=== PATIENT | male | born 1965 | race Caucasian/White ===

== ENCOUNTER → 2021-03-27 | Outpatient (CLI) | payer BC ==
[~2021-03-27] MED LIST: ATOR-2 PO; CELE100C PO; EMPA25TA PO; ISOS30TA8 PO; LAMO100T8 PO; MELO15TA24 PO; METF500T17 PO; METO25TA91 PO; OMEP40CA8 PO; SERT50TA28 PO
[2021-03-27 13:56] LABS: ALBUMIN 3.6 g/dL (3.4-5.0); ANION GAP 10 mmol/L (5-15); CALCIUM 9.3 mg/dL (8.5-10.1); CHLORIDE 106 mmol/L (98-107)
[2021-03-27 14:02] LABS: ALANINE AMINOTRANSFERASE 30 U/L (12-78); ALKALINE PHOSPHATASE 88 U/L (45-117); BILIRUBIN,TOTAL 0.5 mg/dL (0.2-1.0); CREATININE 0.69 mg/dL (0.7-1.3); TOTAL PROTEIN 7.2 g/dL (6.4-8.2)
[2021-03-27 14:06] LABS: BASOPHILS % (AUTO) 1 % (0-1); EOSINOPHILS % (AUTO) 3 % (1-7); LYMPHOCYTES % (AUTO) 32 % (22-44); MEAN CORPUSCULAR HEMOGLOBIN 28.3 pg (27.5-34.5); MEAN CORPUSCULAR HGB CONC 33.1 g/dL (33.2-36.2); MEAN PLATELET VOLUME 9.3 fL (7.4-10.4); MONOCYTES % (AUTO) 7 % (2-9); NEUTROPHILS % (AUTO) 57 % (42-75); PLATELET COUNT 204 x10^3/uL (130-400); RED BLOOD COUNT 4.94 x10^6/uL (4.38-5.82); RED CELL DISTRIBUTION WIDTH 13.8 % (9.4-14.8)
== END | disposition home or self-care (01) ==
LOC: STAR 12:35
PROVIDERS: ATTEND Orthopaedic Surgery
DX: Z01.818 Encounter for other preprocedural examination (principal); M16.11 Unilateral primary osteoarthritis, right hip
CPT/HCPCS: 36415; 80053; 85025; 87081; 87147; 93005

== ENCOUNTER 2021-04-01 05:42 | Observation (INO) | payer BC, OTHER ==
[~2021-04-01] VITALS: Ht 172.7 cm; Wt 110.9 kg
[2021-04-01] MEDS ORDERED: DEXAMETHASONE 4 MG/ML, 1ML IVPush ONE (06:00)
[2021-04-01] MEDS ORDERED: SODIUM CHLORIDE 0.9% 50 ML ONE (06:10)
[2021-04-01] MEDS ORDERED: TRANEXAMIC ACID 100 MG/ML, 10ML ONE (06:10)
[2021-04-01] MEDS ORDERED: EPINEPHRINE 1 MG/ML, 1ML ONE (06:10)
[2021-04-01] MEDS ORDERED: ROPIvacaine/PF 0.2%, 20 ML ONE (06:10)
[2021-04-01] MEDS ORDERED: KETOROLAC 60 MG/2 ML ONE (06:10)
[2021-04-01 06:29] VITALS: BP 134/85
[2021-04-01] MEDS ORDERED: CHLORHEXIDINE 15 ML UDC ONE (06:44)
[2021-04-01] MEDS ORDERED: POLYETHYLENE GLYCOL 17 GM PACKET PO PRN (07:00)
[2021-04-01] MEDS ORDERED: LACTATED RINGERS 1,000 ML IV SCH (07:00)
[2021-04-01] MEDS ORDERED: ALUMINUM/MAG/SIMETHICONE 30 ML UDC PO PRN (07:00)
[2021-04-01] MEDS ORDERED: PSYLLIUM PACKET PO PRN (07:00)
[2021-04-01] MEDS ORDERED: DIPHENHYDRAMINE 25 MG CAPSULE PO PRN (07:00)
[2021-04-01] MEDS ORDERED: ONDANSETRON 2MG/ML, 2ML IVPush PRN ×2 (07:00→07:30)
[2021-04-01] MEDS ORDERED: ACETAMINOPHEN 650 MG/20.3 ML UDC PO PRN (07:00)
[2021-04-01] MEDS ORDERED: TRANEXAMIC ACID 1,000 MG in SODIUM CHLORIDE 0.9% 100 ML IVPB ONE (07:00)
[2021-04-01] MEDS ORDERED: HYDROmorphone 1 MG/ML, 1ML INJ IVPush PRN (07:00)
[2021-04-01] MEDS ORDERED: DIPHENHYDRAMINE 50 MG/ML, 1ML IVPush PRN (07:00)
[2021-04-01] MEDS ORDERED: MAGNESIUM HYDROXIDE 8%, 30ML UDC PO PRN (07:00)
[2021-04-01] MEDS ORDERED: CHLORHEXIDINE 15 ML UDC PO ONE (07:00)
[2021-04-01] MEDS ORDERED: ONDANSETRON 4 MG TABLET PO PRN (07:00)
[2021-04-01] MEDS ORDERED: SENNA/DOCUSATE TABLET PO PRN (07:00)
[2021-04-01] MEDS ORDERED: KETOROLAC 30 MG/1 ML IV SCH (07:00)
[2021-04-01] MEDS ORDERED: FENTANYL PF 100 MCG/2ML ONE ×2 (07:04→10:19)
[2021-04-01] MEDS ORDERED: MIDAZOLAM 1 MG/ML, 2ML ONE (07:05)
[2021-04-01] MEDS ORDERED: OXYcodone 5 MG/5 ML ORAL.SOL UDC PO PRN (07:30)
[2021-04-01] MEDS ORDERED: FENTANYL PF 100 MCG/2ML IV PRN (07:30)
[2021-04-01] MEDS ORDERED: KETOROLAC 30 MG/1 ML IVPush PRN (07:30)
[2021-04-01] MEDS ORDERED: HYDROcodone/APAP 7.5-325MG/15ML UDC PO PRN (07:30)
[2021-04-01] MEDS ORDERED: MEPERIDINE/PF 25MG/0.5ML IVPush PRN (07:30)
[2021-04-01] MEDS ORDERED: PROMETHAZINE 25 MG/ML, 1ML IVPush PRN (07:30)
[2021-04-01] MEDS ORDERED: GLYCOPYRROLATE 0.2MG/1ML, 5ML ONE (07:32)
[2021-04-01] MEDS ORDERED: DEXAMETHASONE 4 MG/ML, 1ML ONE (07:32)
[2021-04-01] MEDS ORDERED: NEOSTIGMINE 1 MG/ML, 10ML ONE (07:32)
[2021-04-01] MEDS ORDERED: SUCCINYLCHOLINE 20 MG/ML, 10ML ONE (07:32)
[2021-04-01] MEDS ORDERED: ONDANSETRON 2MG/ML, 2ML ONE (07:32)
[2021-04-01] MEDS ORDERED: ROCURONIUM 10MG/ML,5ML ONE (07:32)
[2021-04-01] MEDS ORDERED: PROPOFOL 10 MG/ML, 20ML ONE (07:32)
[2021-04-01] MEDS ORDERED: CEFAZOLIN 1,000 MG ONE (07:32)
[2021-04-01] MEDS ORDERED: EPHEDRINE 50 MG/ML, 1ML ONE (08:18)
[2021-04-01] MEDS ORDERED: METOPROLOL SUCCINATE 25 MG TAB.ER.24H PO SCH (09:00)
[2021-04-01] MEDS ORDERED: TAMSULOSIN 0.4 MG CAP.ER.24H PO SCH (09:00)
[2021-04-01] MEDS ORDERED: ISOSORBIDE MONONITRATE ER 30 MG TABLET PO SCH (09:00)
[2021-04-01] MEDS ORDERED: SERTRALINE 50MG TABLET PO SCH (09:00)
[2021-04-01] MEDS ORDERED: metFORMIN 500 MG TABLET PO SCH (09:00)
[2021-04-01] MEDS: DOCUSATE 100 MG CAPSULE PO SCH ×2 (09:00→21:02)
[2021-04-01] MEDS ORDERED: VANCOMYCIN 1,000 MG ONE (09:36)
[2021-04-01] MEDS ORDERED: HYDROmorphone 2 MG/ML, 1ML ONE (10:34)
[2021-04-01] MEDS ORDERED: OXYcodone 5 MG/5 ML ORAL.SOL UDC ONE (10:35)
[2021-04-01] MEDS: HYDROmorphone 1 MG/ML, 1ML INJ IVPush PRN ×3 (10:38→11:09)
[2021-04-01] MEDS ORDERED: METHOCARBAMOL 1,000 MG in DEXTROSE 5% 100 ML IV STA (10:54)
[2021-04-01] MEDS ORDERED: METHOCARBAMOL 1,000 MG in DEXTROSE 5% 100 ML IV ONE (14:30)
[2021-04-01] MEDS: OXYcodone IR 5MG TABLET PO PRN ×2 (15:26→21:02)
[2021-04-01] MEDS: CEFAZOLIN PMX 1GM/50ML 50 ML IVPB SCH (16:45)
[2021-04-01] MEDS: KETOROLAC 30 MG/1 ML IV SCH (16:45)
[2021-04-01] MEDS: ASPIRIN 81 MG TABLET EC PO SCH (18:22)
[2021-04-01] MEDS: POTASSIUM CHLORIDE 20 MEQ in D5%-0.45% NACL 1,000 ML IV SCH (18:22)
[2021-04-01] MEDS ORDERED: LAMOTRIGINE 100 MG TABLET PO SCH (21:00)
[2021-04-01 21:37] VITALS: BP 111/70
[2021-04-02] MEDS: CEFAZOLIN PMX 1GM/50ML 50 ML IVPB SCH (00:41)
[2021-04-02] MEDS: KETOROLAC 30 MG/1 ML IV SCH ×2 (00:42→09:45)
[2021-04-02 04:49] VITALS: BP 116/74
[2021-04-02] MEDS: ASPIRIN 81 MG TABLET EC PO SCH (05:05)
[2021-04-02] MEDS ORDERED: DEXAMETHASONE 4 MG/ML, 1ML IVPush ONE (06:00)
[2021-04-02] MEDS: OMEPRAZOLE 20 MG CAPSULE.DR PO SCH ×2 (06:25→09:00)
[2021-04-02] MEDS: OXYcodone IR 5MG TABLET PO PRN ×2 (06:25→11:21)
[2021-04-02 06:28] VITALS: BP 116/74
[2021-04-02] MEDS: POTASSIUM CHLORIDE 20 MEQ in D5%-0.45% NACL 1,000 ML IV SCH (08:00)
[2021-04-02] MEDS ORDERED: ISOSORBIDE MONONITRATE ER 30 MG TABLET PO SCH (09:00)
[2021-04-02] MEDS ORDERED: LAMOTRIGINE 100 MG TABLET PO SCH (09:00)
[2021-04-02] MEDS ORDERED: METOPROLOL SUCCINATE 25 MG TAB.ER.24H PO SCH (09:00)
[2021-04-02] MEDS ORDERED: TAMSULOSIN 0.4 MG CAP.ER.24H PO SCH (09:00)
[2021-04-02] MEDS ORDERED: metFORMIN 500 MG TABLET PO SCH (09:00)
[2021-04-02] MEDS ORDERED: SERTRALINE 50MG TABLET PO SCH (09:00)
[2021-04-02] MEDS: DOCUSATE 100 MG CAPSULE PO SCH (09:45)
[2021-04-02] MEDS ORDERED: MELOXICAM 15 MG TABLET PO SCH (15:00)
[2021-04-02] MEDS ORDERED: ATORVASTATIN 80 MG TABLET PO SCH (21:00)
== END 2021-04-02 12:08 | disposition home or self-care (01) ==
LOC: OUT 05:42 → ORIP 06:40 → 4NE 13:10
PROVIDERS: ADMIT Orthopaedic Surgery; ATTEND Orthopaedic Surgery
DX: M16.11 Unilateral primary osteoarthritis, right hip (principal); E11.9 Type 2 diabetes mellitus without complications; E78.00 Pure hypercholesterolemia, unspecified; E78.5 Hyperlipidemia, unspecified; E66.9 Obesity, unspecified; G47.30 Sleep apnea, unspecified; Z79.899 Other long term (current) drug therapy
CPT/HCPCS: 27130; 27470; 36415; 72170; 73501; 82962; 86850; 86900; 96361; 96365; 96366; 96375; 96376; 97161; 97166; C1713; C1776; G0378; J0171; J0330; J0690; J1100; J1170; J1885; J2250; J2405; J2704; J2710; J2795; J2800; J3010; J3370; J3480; J7120